=== PATIENT | male | born 1990 ===

== ENCOUNTER 2016-03-26 08:53 | Emergency (ER) | payer OTHER ==
[~2016-03-26] VITALS: Ht 175.3 cm; Wt 93.5 kg
[2016-03-26 08:57] VITALS: Ht 175.3 cm; Wt 93.5 kg
[2016-03-26] MEDS ORDERED: HYDROCODONE/APAP (10/325) TAB PO ONE (09:30)
[2016-03-26] MEDS ORDERED: TRAM50TA2 PO (09:52)
[2016-03-26] MEDS ORDERED: NAPR-260 PO (09:52)
[2016-03-26] MEDS ORDERED: CYCL-319 PO (09:53)
--- NOTE | 2016-03-26 09:59 | ERD ---
ER Documentation Chief Complaint Date/Time DATE: 03/26/16 TIME: 09:56 Chief Complaint left shoulder pain x 4 days worse today HPI This is a 25-year-old male who presents the emergency department today complaining of left-sided shoulder pain that started yesterday after lifting heavy weights and doing shoulder press overhead. States he took Tylenol yesterday with no improvement in pain. Denies any previous history of shoulder problems. Denies any fevers or chills. ROS All systems reviewed and are negative except as per history of present illness. Medications Home Meds Active Scripts Cyclobenzaprine Hcl* (Cyclobenzaprine Hcl*) 10 Mg Tablet, 10 MG PO QHS, #7 TAB Prov:LUIGI PARISH-C 03/26/16 Tramadol HCl (Tramadol HCl) 50 Mg Tablet, 50 MG PO Q4 Y for PAIN, #20 TAB Prov:LUIGI PARISHC 03/26/16 Naproxen* (Naprosyn*) 500 Mg Tablet, 500 MG PO BID Y for PAIN AND/OR INFLAMMATION, #30 TAB Prov:LUIGI PARISH-C 03/26/16 Allergies Allergies: Coded Allergies: No Known Allergy (Unverified , 03/26/16) PMhx/Soc History of Surgery: No Anesthesia Reaction: No Hx Neurological Disorder: No Hx Respiratory Disorders: No Hx Cardiac Disorders: No Hx Psychiatric Problems: No Hx Miscellaneous Medical Probl: No Hx Alcohol Use: No Hx Substance Use: No Hx Tobacco Use: No Smoking Status: Never smoker Physical Exam Vitals Vital Signs Date Time Temp Pulse Resp B/P Pulse Ox O2 Delivery O2 Flow Rate FiO2 03/26/16 08:57 97.8 73 18 130/68 99 Physical Exam Const: No acute distress Head: Atraumatic Eyes: Normal Conjunctiva ENT: Normal External Ears, Nose and Mouth. Neck: Tenderness palpation left-sided paraspinals. No midline tenderness. Pain with turning neck to the left...~ No meningismus. Resp: Clear to auscultation bilaterally Cardio: Regular rate and rhythm, no murmurs Abd: Soft, non tender, non distended. Normal bowel sounds Skin: No petechiae or rashes MSK: Left shoulder with no obvious deformity. No effusion. No ecchymosis. Full active range of motion with flexion and extension. Tenderness to palpation trapezius muscle and medial border of scapula. Pulses 2+. Distal neurovascularly intact. Neur: Awake and alert Psych: Normal Mood and Affect Results 24 hrs Current Medications Medications (Trade) Dose Ordered Sig/Sang Route PRN Reason Start Time Stop Time Status Last Admin Dose Admin Acetaminophen/ Hydrocodone Bitart ([place] (90/521)) 1 tab ONCE ONCE PO 03/26/16 09:30 03/26/16 09:31 DC 03/26/16 09:34 Procedures/MDM This 25-year-old male who presents the emergency department today complaining of left shoulder and neck pain after lifting heavy weights yesterday and doing shoulder press overhead. On physical exam patient does not have any neck midline tenderness and he has full active range of motion of his left shoulder. Do not feel the patient requires imaging at this time. Patient has tenderness over his left side of trapezius muscle and medial border of the scapula. Patient symptoms at this time consistent with muscle strain versus sprain and muscle spasm. Low suspicion for acute fracture dislocation. Patient is afebrile and otherwise well-appearing. There is no erythema or warmth and I have low suspicion for septic joint or gout. Patient was given a [place] here in the emergency department. He will be given a very short course of tramadol for home as well as Naprosyn and Flexeril to take only at night. He was instructed to apply ice and heat intermittent as well as do stretching exercises At this time the patient is stable for discharge and outpatient management. Patient should follow up with their PCP in the next 1-2 days. They may return to the emergency department sooner for any persistent or worsening of symptoms. Patient understood and agreed with the plan. Departure Diagnosis: Primary Impression: Muscle strain Condition: Fair Patient Instructions: Muscle Spasm, Muscle Strain, Extremity Referrals: COMM[facility]ITY CLIN[facility] YOU HAVE RECEIVED A MEDICAL SCREENING EXAM AND THE RESULTS INDICATE THAT YOU DO NOT HAVE A CONDITION THAT REQUIRES URGENT TREATMENT IN THE EMERGENCY DEPARTMENT. FURTHER EVALUATION AND TREATMENT OF YOUR CONDITION CAN WAIT UNTIL YOU ARE SEEN IN YOUR DOCTORS OFFICE WITHIN THE NEXT 1-2 DAYS. IT IS YOUR RESPONSIBILITY TO MAKE AN APPOINTMENT FOR FOLOW-UP CARE. IF YOU HAVE A PRIMARY DOCTOR --you should call your primary doctor and schedule an appointment IF YOU DO NOT HAVE A PRIMARY DOCTOR YOU CAN CALL OUR PHYSICIAN REFERRAL HOTLINE AT IF YOU CAN NOT AFFORD TO SEE A PHYSICIAN YOU CAN CHOSE FROM THE FOLLOWING ON LICENSE OF [facility] [address] [facility]. [facility] [address] [facility]. [facility] [phone] [facility]. [facility] [address] [facility]. [facility] [phone] [facility]. [facility] [address] Additional Instructions: Call your primary care doctor TOMORROW for an appointment during the next 1-2 days.See the doctor sooner or return here if your condition worsens before your appointment time. Take tramadol for severe pain otherwise take Naprosyn or Tylenol or Motrin Take Flexeril for for muscle spasms only take at night and do not drive while taking this medication Apply ice and heat intermittently and do stretching exercise LUIGI PARISH PA-C Mar 26, 2016 09:59
== END 2016-03-26 10:04 | disposition home or self-care (01) ==
LOC: FTE 08:53
DX: S46.912A Strain of unspecified muscle, fascia and tendon at shoulder and upper arm level, left arm, initial encounter (principal); X50.0XXA Overexertion from strenuous movement or load, initial encounter; Y92.9 Unspecified place or not applicable
CPT/HCPCS: Z7502; Z7610; 99284

== ENCOUNTER 2017-04-18 19:40 | Emergency (ER) | END 2017-04-18 20:10 | disposition left against medical advice (07) ==